=== PATIENT | male | born 1960 | race Hispanic/Latino ===

== ENCOUNTER 2019-03-30 16:47 | Emergency (ER) | payer OTHER ==
[~2019-03-30] VITALS: Ht 157.5 cm; Wt 74.8 kg
[2019-03-30] MEDS ORDERED: GLUCOPHAGE1000 MG PO (16:59)
[2019-03-30] MEDS ORDERED: LISINOPRIL-HCT1 EAC1 PO (17:00)
[2019-03-30] MEDS ORDERED: GLYBURIDE5 MG PO (17:00)
[2019-03-30] MEDS ORDERED: FISH OIL 1,0001 EAC2 NG (17:01)
[2019-03-30] MEDS ORDERED: LANTUS100 UNITS/ SUB-Q (17:01)
[2019-03-30] MEDS ORDERED: AMOXICILLIN500 MG PO (17:39)
[2019-03-30] MEDS ORDERED: CIPRODEX OTIC7.5 ML AS (17:39)
== END 2019-03-30 17:57 | disposition home or self-care (01) ==
LOC: ED 16:47
DX: H60.92 Unspecified otitis externa, left ear (principal); H66.92 Otitis media, unspecified, left ear; E11.9 Type 2 diabetes mellitus without complications; I10 Essential (primary) hypertension; Z79.899 Other long term (current) drug therapy; Z79.4 Long term (current) use of insulin
CPT/HCPCS: 99282

== ENCOUNTER 2023-08-01 09:02 | Emergency (ER) | payer BC ==
[~2023-08-01] VITALS: Ht 157.5 cm; Wt 75.9 kg
[~2023-08-01 09:02] MED LIST: AMOXICILLIN500 MG PO; CIPRODEX OTIC7.5 ML AS; FISH OIL 1,0001 EAC2 NG; GLUCOPHAGE1000 MG PO; GLYBURIDE5 MG PO; LANTUS100 UNITS/ SUB-Q; LISINOPRIL-HCT1 EAC1 PO
[2023-08-01 09:30] LABS: HEMOGLOBIN 15.2 g/dL (12.0-18.0)
[2023-08-01] MEDS ORDERED: ACETAMINOPHEN 500 MG TAB PO ONE (09:30)
[2023-08-01] MEDS ORDERED: KETOROLAC TROMETHAMINE 15 MG/ML VIAL IV ONE (09:30)
[2023-08-01] MEDS ORDERED: ondansetron HCL 4 MG/2 ML VIAL IV ONE (09:30)
[2023-08-01] MEDS ORDERED: SODIUM CHLORIDE 0.9% 1,000 ML IV ONE (09:30)
[2023-08-01 09:33] LABS: BASOPHILS 0.3 % (0-2); EOSINOPHILS 0.3 % (0-6); HEMATOCRIT 45.2 % (35.0-50.0); LYMPHOCYTES 9.7 % (24-44); MCH 30.7 (27-36); MCHC 33.6 g/dl (30-36); MCV 91.3 fl (81-99); MONOCYTES 3.7 % (0-12); PLATELET COUNT 251 K/uL (140-440); RBC 4.96 M/ul (4.3-5.7); RDW 14.1 (10.5-15.0)
[2023-08-01 09:43] LABS: ALBUMIN 3.8 g/dL (3.4-5.0); ALBUMIN/GLOBULIN RATIO 1.03 (1.1-2.4); ANION GAP 12.8 (7-21); BILIRUBIN, TOTAL 0.4 ng/dL (0.2-1.0); BUN/CREATININE RATIO 14.13 (6.0-28.6); CALCIUM 8.4 mg/dL (8.5-10.1); CREATININE, SERUM 0.92 mg/dL (0.70-1.30); POTASSIUM 3.8 mmol/L (3.5-5.1); PROTEIN, TOTAL 7.5 g/dL (6.4-8.2)
[2023-08-01 10:16] LABS: BILIRUBIN, URINE NEGATIVE (negative); BLOOD/HGB, URINE NEGATIVE (Negative); KETONE, URINE NEGATIVE (Negative); LEUK ESTERASE, URINE NEGATIVE (negative); NITRITE, URINE NEGATIVE (negative)
[2023-08-01 10:35] LABS: BACTERIA, URINE RARE /hpf (negative); CASTS, URINE NONE SEEN \\lpf; COLLECTION TYPE, URINE CLEAN CATCH; CRYSTALS, URINE NONE SEEN (0-1+); EPITHELIAL CELLS, URINE 0 /lpf (0-1+)
[2023-08-01 10:36] LABS: REFLEX CULTURE, URINE No (No)
[2023-08-01] MEDS ORDERED: ONDANSETRON ODT8 MG PO (10:47)
[2023-08-01 10:57] VITALS: BP 148/89
== END 2023-08-01 10:57 | disposition home or self-care (01) ==
LOC: ED 09:02
PROVIDERS: Emergency Medicine
DX: B34.9 Viral infection, unspecified (principal); E11.9 Type 2 diabetes mellitus without complications; I10 Essential (primary) hypertension; Z79.84 Long term (current) use of oral hypoglycemic drugs; Z79.4 Long term (current) use of insulin; Z79.899 Other long term (current) drug therapy
CPT/HCPCS: 36415; 80053; 81001; 84484; 85025; 96361; 96374; 96375; 99284-25; A9270; J1885; J2405; J7030